=== PATIENT | male | born 1985 | race Caucasian/White ===

== ENCOUNTER 2020-04-13 14:24 | Emergency (ER) | payer OTHER, SELFPAY ==
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
--- NOTE | ~2020-04-13 | XR_ITS ---
XR shoulder RT min 2V DATE: 04/13/2020 18:01 INDICATION: Right shoulder pain TECHNIQUE: 4 views COMPARISON: None FINDINGS: No fracture or dislocation, periosteal reaction or bone destruction or abnormal soft tissue calcification. Normal alignment at the acromioclavicular and glenohumeral joints. IMPRESSION: Negative Reviewed, dictated and finalized at location A. IMPRESSION: Negative
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
[2020-04-13 14:31] VITALS: BP 161/96; PULSE 97; RESP 16; TEMP 36.6; O2SAT 97
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
[2020-04-13] MEDS: IBUPROFEN 600 MG TABLET PO (17:30)
[2020-04-13 18:38] VITALS: BP 142/103; PULSE 82; RESP 16; TEMP 37.6; O2SAT 96
== END 2020-04-13 18:39 | disposition home or self-care (01) ==
PROVIDERS: Emergency Provider Emergency Medicine; PCP Family Medicine
DX: S16.1XXA Strain of muscle, fascia and tendon at neck level, initial encounter (principal); M25.511 Pain in right shoulder; S00.432A Contusion of left ear, initial encounter; M47.812 Spondylosis without myelopathy or radiculopathy, cervical region; Z87.891 Personal history of nicotine dependence; V44.5XXA Car driver injured in collision with heavy transport vehicle or bus in traffic accident, initial encounter
CPT/HCPCS: 71046; 72125; 73030; 99284; A9270

== ENCOUNTER → 2020-10-07 09:09 | Outpatient (CLI) | payer BC, SELFPAY ==
--- NOTE | ~2020-10-07 | MR_ITS ---
EXAMINATION: MR shoulder RT wo con DATE: 10/07/2020 09:49 INDICATION: Rotator cuff tear or rupture with right shoulder pain and limited range of motion TECHNIQUE: Magnetic resonance imaging (MRI) of the affected shoulder was performed without intravenou s contrast. Sequences included axial PD-weighted FS FSE, coronal oblique PD-weighted FS FSE, coronal oblique T2-weighted FS FSE, sagittal PD-weighted FS FSE, and sagittal T1-weighted SE. COMPARISON: None. FINDINGS: Coracoacromial arch: The acromion undersurface is curved in morphology (type II). The coracoacromial ligament is normal. A cromioclavicular joint is normal. Rotator cuff: Mild to moderate supraspinatus and subscapularis tendinopathy. Mild infraspinatus tendinopathy. There is a small mild subscapularis tendon tear along the lateral margin of the lesser tuberosity which me asures approximately 7 mm craniocaudally, 5 mm medial to lateral it involves less than one third of t he tendon thickness, possibly a longitudinal split tear. The teres minor tendon is normal. Normal rot ator cuff muscle bulk and signal. Biceps tendon, glenoid labrum and glenohumeral cartilage: Long head of the biceps tendon is normal. Subtle amorphous increased signal consistent with degenerat ion at the 11:00 position of the posterior superior glenoid labrum. Glenohumeral cartilage is normal. Fluid: Small amount of fluid in the long head biceps tendon sheath which is disproportionate to the physiolo gic amount fluid in the glenohumeral joint space consistent with mild bicipital tenosynovitis. No loo se osteochondral bodies. Small amount of fluid in the subacromial/subdeltoid bursa consistent with mi ld bursitis. Bones: Low signal intensity sclerotic bone island at the humeral head. Normal marrow signal with no fracture or abnormal marrow replacing process. IMPRESSION: 1. Mild to moderate subscapularis tendinopathy with small mild partial-thickness tear at the lateral margin of the lesser tuberosity footplate. 2. Mild to moderate supraspinatus and mild infraspinatus tendinopathy without discrete tear. 3. Mild degeneration at the posterior superior glenoid labrum. 4. Mild bicipital tenosynovitis and mild subacromial/subdeltoid bursitis. Reviewed, dictated and finalized at location B. [facility] [employer] IMPRESSION: 1. Mild to moderate subscapularis tendinopathy with small mild partial-thicknes s tear at the lateral margin of the lesser tuberosity footplate. 2. Mild to moderate supraspinatus and mild infraspinatus tendinopathy without d iscrete tear. 3. Mild degeneration at the posterior superior glenoid labrum. 4. Mild bicipital tenosynovitis and mild subacromial/subdeltoid bursitis.
== END ==
PROVIDERS: Visit Provider Orthopaedic Surgery
DX: M12.811 Other specific arthropathies, not elsewhere classified, right shoulder (principal); M75.101 Unspecified rotator cuff tear or rupture of right shoulder, not specified as traumatic; M75.51 Bursitis of right shoulder
CPT/HCPCS: 73221

== ENCOUNTER → 2021-01-14 00:05 | Outpatient (CLI) | payer OTHER, BC, SELFPAY ==
[2021-01-14 17:56] LABS: SARS-CoV-2 RNA PCR Negative
== END ==
PROVIDERS: PCP Family Medicine; Visit Provider Orthopaedic Surgery
DX: Z01.812 Encounter for preprocedural laboratory examination (principal); Z20.822 Contact with and (suspected) exposure to COVID-19
CPT/HCPCS: C9803; U0003; U0005

== ENCOUNTER 2021-01-17 02:14 | Day surgery (SDC) | payer OTHER, BC, SELFPAY ==
[2021-01-11 09:57] VITALS: BMI 27.6
[2021-01-17] VITALS (10 sets, daily range): BP systolic 106–128; BP diastolic 65–93; PULSE 54–87; RESP 12–19; TEMP 35.8–36.2; O2SAT 95–100
--- NOTE | 2021-01-17 09:09 | WPDANESEPPF ---
Anes - Initial Pre Proc Eval Procedure: Operation Date: 01/17/21 10:30 Proposed Procedures p Right Arthroscopic Rotator Cuff Repair with Subacromial Decompression, Possible Biceps Tenodesis - Darian Bobo MD Date/Time: 01/17/21 09:09 Surgeon: Darian Bobo MD Pre Op Diagnosis: partial rotator cuff tear Patient Data Age: 35 Gender: M Height: 1.77 m Weight: 86.18 kg Allergies Allergy/AdvReac Type Severity Reaction Status Date / Time No Known Allergies Allergy Verified 01/11/21 09:56 Home Medications Medication Instructions Recorded Confirmed Type ibuprofen [Advil] 600 mg PO Q6H PRN 01/11/21 01/11/21 History Patient hx anesthesia problems: none Family hx anesthesia problems: none [facility] Past Medical History Medical History (Updated 10/13/20 @ 11:07 by Darian Bobo MD) Patient denies significant medical history Family History Family History Father Diabetes mellitus Social History Social History Smoking packs per day: 1 Smoking cigarettes per day: 20.0 Years smoked: 12 Smoking pack-years: 12.00 Smoking end date: 08/05/14 Alcohol intake: current Drinks per week: 6 Substance use: never Substance use type: does not use Living arrangements: with family Gender identity (if verbalized by the patient): Male Spiritual care concerns: No Anes - Eval Final PreProcedure Day of Procedure 01/17/21 09:09 Patient weight: overweight Heart: regular rate and rhythm Lungs: clear to auscultation and normal air movement Airway: Mallampati scale class II Neurological: alert and oriented Last oral intake: >/= 8 hours ASA classification: II Emergent: no Anesthetic plan: proceed Anesthesia type and monitoring: general ETT and standard monitoring Informed Consent: The patient's anesthetic plan and its attendant risks and benefits were discussed with the patient/family/POA. Questions were solicited and answers provided to the satisfaction of the patient/family/POA.
[2021-01-17] MEDS: ACETAMINOPHEN 500 MG TABLET 1000 MG PO (09:10)
--- NOTE | 2021-01-17 09:10 | WPDANESPNB ---
Anes - Peripheral Nerve Block Date/Time: 01/17/21 09:10 I have discussed with the patient/family/POA the placement of a peripheral nerve block for post-operative pain management, including associated risks, benefits, complications, and side effects. Alternative methods of post-operative analgesia were detailed. Questions were solicited and answers provided to the satisfaction of the patient/family/POA. Time-Out: A pre-procedural Time-Out was completed immediately before starting the procedure and confirmed: Patient Identification, Site, Procedure, Patient Position and the Availability of Requisite Equipment. Clinical Indications: Acute post-operative pain management requested by the operative surgeon. Nerve Block Insertion Note Anes-nerve block: interscalene right Patient position: supine Skin prep: chlorhexidine Needle: 22 gauge, stimulating, insulated echogenic needle. Needle length: 50 mm Technique: ultrasound Injectate: bupivacaine 0.5% with epi 5 mcg/ml (30cc- no epi) Observations: tolerated well Complications: none Procedure start time:: 958 Procedure end time:: 1001
[2021-01-17] MEDS: LACTATED RINGERS 1,000 ML 30 ML IV CONT ×2 (09:21→13:26)
[2021-01-17] MEDS: KETOROLAC 15 MG/ML VIAL (*BKC) IV PUSH (09:24)
--- NOTE | 2021-01-17 10:02 | WPDHPUPDATE1 ---
History and Physical Update Update Date/Time: 01/17/21 10:02 History and Physical has been reviewed, including an updated exam of the patient. There are NO changes in the patient's condition. Risks, benefits, and alternatives have been discussed and questions answered. Patient agrees to proceed with procedure.
[2021-01-17] MEDS: ceFAZolin 2 GM/D5W 50 ML 2 GM/50 ML BAG IVPB (10:09)
[2021-01-17] MEDS: fentaNYL CITRATE INJ (*CRX) 100 MCG/2 ML VIAL 25 MCG IV PUSH ×2 (13:10→13:16)
[2021-01-17] MEDS: ONDANSETRON INJ 4 MG/2 ML VIAL IV PUSH (13:37)
--- NOTE | 2021-01-17 14:38 | W.PM.PROC2 ---
Procedure Note - Detailed Date of Procedure 01/17/21 Pre-op Diagnosis 1. Partial rotator cuff tear 2. Slap tear 3. Biceps tendinitis 4. Impingement syndrome Post-op Diagnosis same Procedure Performed 1. Arthroscopic biceps tenodesis with SLAP tear debridement 2. Arthroscopic subacromial decompression Surgeon Darian Bobo MD Pmo Analyst Tatyana Major PA-C Anesthesia general and regional Indications Persistent pain despite conservative treatment. MRI showed slap tear with biceps tendinitis as well as evidence of subacromial impingement. The upper subscapularis showed possible minimal split tearing. Findings The upper subscapularis showed only very minimal low-grade longitudinal fraying. No significant detachment. The slap tear was quite significant with high-grade disruption of the biceps anchor. The remaining rotator cuff appeared normal on the articular side. However, the bursal side showed very low-grade 5% fraying consistent with fraying and irregularity at the anterolateral acromion and coracoacromial ligament. This suggested external impingement which was treated with subacromial decompression and bursectomy. Biceps tenodesis was performed with a single suture anchor in the bicipital groove arthroscopically with double loaded anchor, and 3 locking loop sutures passes. Physician bus assistant, Tatyana Major PA-C, required for surgery; including patient positioning, draping, arthroscopic camera operation, maintaining instrument position, suture retrieval, wound closure, and dressing and sling placement. Description of Procedure Preoperative antibiotics were given. The patient was brought to the operating room. A general anesthetic was administered. Patient was placed in the lateral decubitus position on the beanbag. An axillary roll was placed. The head and neck were carefully positioned. The shoulder was prepped and draped. The traction apparatus was placed on the arm. Standard posterior and anterior arthroscopic portals were established. Later, 3 accessory portals were utilized. Inflow with the saline pump. The superior labrum showed significant detachment and type 2 tear. This was clearly unstable. The shoulder had shown mild hyperemia. The tear extended throughout the superior labrum. The remaining labrum was healthy. There was mild chondromalacia at the central glenoid. The humerus was normal. The superior and posterior rotator cuff were normal. The subscapularis was inspected. There was mild swelling and blistering and minimal longitudinal splitting. No unstable fibers were observed. The biceps was released from the superior labrum and gentle debridement was performed with the shaver and the radiofrequency probe used to stabilize the remaining labral tissue. Attention was turned to the subacromial space, after marking the biceps for later retrieval. The bursa was quite thickened. A complete bursectomy was performed. The anterolateral acromion was exposed and acromioplasty performed with the arthroscopic bur. There was mild fraying of the bursal side supraspinatus in the region of the prominent anterolateral acromion. There was some evidence of impingement also on the undersurface soft tissues. Attention was turned to the biceps. It was freed from the sheath. The groove was roughened with a rasp. A 2.8 mm Piton anchor was placed with excellent purchase. Using the antegrade suture Passer, 2 locking loop sutures were placed from the 1st suture. The biceps was slightly pre tensioned prior to passing the sutures. The second suture was tied and another locking loop. Sutures were tied arthroscopically and the biceps repair was quite joya in the intertubercular groove. The arthroscopic instruments were removed. The wounds were closed with interrupted 4-0 Monocryl suture followed by Steri-Strips. A sterile dressing and sling were applied. The patient was extubated and brought to the recovery room in stable conditio
[2021-01-17] MEDS: SCOPOLAMINE 1.5 MG PATCH TRANSDERM (15:22)
--- NOTE | 2021-01-17 15:24 | SUR.PHASEII ---
TWITCHING NOTED TO BOTH JAWS AND LATERAL NECKS. DR. BLAKE NOTIFIED WHO CAME TO SEE PT. NO INTERVENTIONS ORDERED.
== END 2021-01-17 15:40 | disposition home or self-care (01) ==
PROVIDERS: PCP Family Medicine; Visit Provider Orthopaedic Surgery
PROC: (CPT 29805; principal; 2021-01-17 10:30)
DX: S46.011A Strain of muscle(s) and tendon(s) of the rotator cuff of right shoulder, initial encounter (principal); S43.431A Superior glenoid labrum lesion of right shoulder, initial encounter; M75.21 Bicipital tendinitis, right shoulder; M75.41 Impingement syndrome of right shoulder; V49.40XA Driver injured in collision with unspecified motor vehicles in traffic accident, initial encounter; G89.18 Other acute postprocedural pain; F17.210 Nicotine dependence, cigarettes, uncomplicated
CPT/HCPCS: 29828; 64415; A9270; C1713; J0690; J1100; J1170; J1200; J1885; J2250; J2405; J2704; J2710; J3010; J7120